=== PATIENT | female | born 1965 | race Caucasian/White ===

== ENCOUNTER 2017-06-02 16:30 | Observation (INO) | END 2017-06-04 17:22 | disposition home or self-care (01) ==

== ENCOUNTER 2018-11-13 17:57 | Emergency (ER) | payer MEDICAID ==
[~2018-11-13] VITALS: Ht 167.6 cm; Wt 88.3 kg
[2018-11-13 18:03] VITALS: BP 154/66; PULSE 84; RESP 16; Ht 167.6 cm; Wt 88.3 kg
[2018-11-13] MEDS ORDERED: ONDANSETRON (ODT) 4 MG TAB ODT STA (19:21)
--- NOTE | 2018-11-13 19:25 | ERD ---
ER Documentation Chief Complaint Chief Complaint MCDANIELS, dizzy, nausea x5d worse today. tylenol 1400 min relief. HPI 53-year-old female, previously healthy, presents the emergency department, complaining of 5 days with dizziness, associated with headache on left side paresthesia. The patient refers that the dizziness is worse with sudden changes in position, she denies ear pain, no chest pain, no shortness of breath, no history of previous episodes. ROS All systems reviewed and are negative except as per history of present illness. Medications Home Meds Active Scripts Ondansetron Hcl* (Zofran*) 4 Mg Tablet, 4 MG PO Q8H PRN for NAUSEA AND/OR VOMITING, #15 TAB Prov:MILLA CRAWLEY MD 11/13/18 Meclizine Hcl* (Antivert*) 12.5 Mg Tab, 12.5 MG PO Q6H PRN for DIZZINESS, #20 TAB Prov:MILLA CRAWLEY MD 11/13/18 Allergies Allergies: Coded Allergies: Penicillins (Verified Allergy, Unknown, 06/02/17) PMhx/Soc Medical and Surgical Hx: pt denies Medical Hx History of Surgery: Yes (NECK SX) Anesthesia Reaction: No Hx Neurological Disorder: No Hx Respiratory Disorders: No Hx Cardiac Disorders: No Hx Psychiatric Problems: No Hx Miscellaneous Medical Probl: No Hx Alcohol Use: No Hx Substance Use: No Hx Tobacco Use: No Smoking Status: Never smoker FmHx Family History: No diabetes, No coronary disease Physical Exam Vitals Vital Signs Date Temp Pulse Resp B/P (MAP) Pulse Ox O2 O2 Flow FiO2 Time Delivery Rate 11/13/18 99.0 84 16 154/66 98 18:03 (95) Physical Exam Patient is in no acute distress, vital signs stable. Alert and fully oriented. HEENT: PERRLA, EOMI, Sclera and conjunctiva appear normal, Canals clear, tympani c membranes WNL. THROAT: Normal oropharynx. NECK: Supple, No lymphadenopathy. Full ROM without pain or tenderness. HEART: RRR, no rubs, murmurs, clicks or gallops. LUNGS: Clear to auscultation. ABDOMEN: Soft, non-tender without masses or hepatosplenomegaly. EXTREMITIES: No edema bilaterally. BACK: Full ROM, no deformity, normal back exam NEURO: Cranial nerves grossly intact, no motor or sensory deficit. Mild horizontal nystagmus while the patient was looking straight ahead with mildly abnormal head impulse test. Result Diagram: 11/13/18193011/13/181930 Results 24 hrs Laboratory Tests Test 11/13/18 19:31 11/13/18 19:42 White Blood Count 5.4 10^3/ul Red Blood Count 4.15 10^6/ul Hemoglobin 12.8 g/dl Hematocrit 36.5 % Mean Corpuscular Volume 88.0 fl Mean Corpuscular Hemoglobin 30.8 pg Mean Corpuscular Hemoglobin Concent 35.1 g/dl Red Cell Distribution Width 11.7 % Platelet Count 191 10^3/UL Mean Platelet Volume 9.7 fl Immature Granulocytes % 0.200 % Neutrophils % 56.3 % Lymphocytes % 30.4 % Monocytes % 9.8 % Eosinophils % 2.6 % Basophils % 0.7 % Nucleated Red Blood Cells % 0.0 /100WBC Immature Granulocytes # 0.010 10^3/ul Neutrophils # 3.0 10^3/ul Lymphocytes # 1.6 10^3/ul Monocytes # 0.5 10^3/ul Eosinophils # 0.1 10^3/ul Basophils # 0.0 10^3/ul Nucleated Red Blood Cells # 0.0 10^3/ul Sodium Level 143 mmol/L Potassium Level 4.3 mmol/L Chloride Level 107 mmol/L Carbon Dioxide Level 29 mmol/L Anion Gap 7 Blood Urea Nitrogen 14 mg/dl Creatinine 0.64 mg/dl Est Glomerular Filtrat Rate mL/min > 60 mL/min Glucose Level 102 mg/dl Calcium Level 8.9 mg/dl Bedside Urine pH (LAB) 7.0 Bedside Urine Protein (LAB) Negative Bedside Urine Glucose (UA) Negative Bedside Urine Ketones (LAB) Negative Bedside Urine Blood Negative Bedside Urine Nitrite (LAB) Negative Bedside Urine Leukocyte Esterase (L 1+ POC Beta HCG, Qualitative NEGATIVE Current Medications Medications Dose Sig/Naeem Start Time Status Last (Trade) Ordered Route PRN Stop Time Admin Dose Reason Admin Meclizine 25 mg ONCE ONCE 11/13/18 DC 11/13/18 HCl PO 19:30 11/13/18 19:50 (Antivert) 19:43 Lorazepam 0.5 mg ONCE ONCE 11/13/18 DC 11/13/18 (Ativan) PO 19:30 11/13/18 19:50 19:43 Ondansetron 4 mg ONCE STAT 11/13/18 DC 11/13/18 HCl (Zofran ODT 19:21 11/13/18 19:50 Odt) 19:43 Patient: MARCEL BLACK : 1965 Age: 53 Sex: F MR #: [id number] DOS: 11/13/181920 Ordering MD: MILLA CRAWLEY MD Location: [facility] Room/Bed: PROCEDURE: CT Brain without contrast. CLINICAL INDICATION: Patient experiencing MCDANIELS/dizziness TECHNIQUE: A CT of the brain was performed from the skull base through the vertex without IV contrast. Multiplanar reformatted images were made. Images were reviewed on a PACS workstation. The CTDIvol is 36 mGy and the DLP is 634 mGycm. DICOM images are available. One or more of the following dose reduction techniques were utilized: 1.) Automated exposure control 2.) Adjustment of the mA +/- kV according to patient's size 3.) Use of iterative reconstruction technique. COMPARISON: 06/02/2017 FINDINGS: Brain: No acute intracranial findings. No mass, hemorrhage, or evidence of acute infarct. The ventricles are normal in size and configuration. Bones: The skull base and calvarium are normal in appearance. Orbits: Unremarkable Soft tissues: Unremarkable Paranasal sinuses: Visualized sinuses are clear. IMPRESSION: No acute intracranial findings. Procedures/MDM Vital signs stable, neurovascular exam revealed horizontal nystagmus while the p atient was looking straight ahead with mildly abnormal head impulse test. Differential diagnosis include but not limited to dehydration, cardiac arrhythmia, , Mnire's disease, vestibular neuronitis, migraine, vertigo, side effects of the medications, hypoglycemia. Less likely but is stil l a possibility, intracranial hemorrhage, ischemic stroke, EMERGENCY MAN neoplasm. Pertinent Data: 12 Lead ECG: Sinus rhythm, no ST changes, normal T wave, normal intervals Labs: CBC: normal, BMP: normal kidney function, normal electrolytes. Glucose: normal Urine : Negative. CT head: Normal Physical examination and clinical presentation consistent most likely with positional vertigo During the ED course the patient remained stable, no new complaints. Results and clinical impression discussed with patient who agrees with management. The patient is stable to be treated outpatient and will be d ischarged home with instructions to follow up with the primary care provider in the next 48h. If symptoms persist, worsen or new symptoms develop, then patient should return to the ED immediately. Instructions explained and given directly by me to the patient with acknowledgment and demonstrated understanding. Disclaimer: Inadvertent spelling and grammatical errors are likely due to EHR/dictation software use and do not reflect on the overall quality of patient care. Also, please note that the electronic time recorded on this note does not necessarily reflect the actual time of the patient encounter. Departure Diagnosis: Primary Impression: Positional vertigo Condition: Stable Patient Instructions: Vertigo, Unspecified Additional Instructions: Muchas oscar por [facility] para epps servicio. Esperamos que en epps visita a la david de emergencia epps problema medico haya sido solucionado y que se sienta mucho mejor. Para estar seguros que epps mejoria sigue en proceso, le pedimos el favor de hacer lalo ivanna de seguimiento medico con epps doctor primario en los proximos 2-4 coy. Lleve con usted estos documentos y las medicinas recetadas. Si brigitte sintomas empeoran, NO SE ESPERE, por favor regrese a david de emergencia INMEDIATAMENTE. En alma rosa que usted no tenga un mdico de atencin primaria: Llame al mdico o clnica comunitaria de referencia que aparece abajo madan las horas de consultorio para hacer lalo ivanna para que le vean. CLINICAS: [facility] [id number] [facility] [phone] [address] [facility] [phone] [address] [facility] [phone] [address] [facility] [phone] [address] [facility]. [phone] MILLA RODRIGUEZ MD Nov 13, 2018 19:25
[2018-11-13] MEDS ORDERED: MECLIZINE 12.5 MG TAB PO ONE (19:30)
[2018-11-13] MEDS ORDERED: LORAZEPAM 0.5 MG TAB PO ONE (19:30)
[2018-11-13] MEDS ORDERED: ONDA4TAB8 PO (20:45)
[2018-11-13] MEDS ORDERED: MECL12.574 PO (20:45)
== END 2018-11-13 21:58 | disposition home or self-care (01) ==
LOC: FTE 17:57
DX: H81.10 Benign paroxysmal vertigo, unspecified ear (principal)
CPT/HCPCS: 70450; 80048; 81003; 81025; 85025; 93005; Z7502; Z7610